=== PATIENT | male | born 1940 | race Caucasian/White ===

== ENCOUNTER 2021-10-10 14:42 | Inpatient (IN) ==
[2021-10-10] MEDS ORDERED: Melatonin 3 MG TABLET PO PRN (16:30)
[2021-10-10] MEDS ORDERED: Naloxone 0.4 MG/ML INJ IVP PRN (16:30)
[2021-10-10] MEDS ORDERED: *HR* OxyCODONE/APAP 5/325 TABLET PO PRN (16:45)
[2021-10-10] MEDS: *HR* OxyCODONE/APAP 10/325 TABLET PO PRN (17:17)
[2021-10-10] MEDS: Pyridoxine (B-6) 50 MG TABLET PO SCH (18:11)
[2021-10-10] MEDS: 0.9 % Sodium Chloride 1,000 ML IVC SCH (18:11)
[2021-10-11] MEDS: *HR* OxyCODONE/APAP 10/325 TABLET PO PRN (00:14)
[2021-10-11] MEDS: 0.9 % Sodium Chloride 1,000 ML IVC SCH ×2 (04:07→13:57)
[2021-10-11 04:49] LABS: Basophils % 0.2 %; Eosinophils # 0.1 K/mcL (0.0-0.6); Eosinophils % 1.4 %; Hematocrit 32.5 % (37.5-50.1); Hemoglobin 10.9 g/dL (12.9-16.9); Immature Granulocytes % 0.5 % (0-4); Lymphocytes # 1.4 K/mcL (0.6-4.6); Mean Corpuscular HGB Conc 33.5 g/dL (31.6-35.5); Mean Corpuscular Hemoglobin 32.8 pg (28.0-33.3); Mean Corpuscular Volume 97.9 fL (83.0-100.0); Mean Platelet Volume 11.1 fL (9.4-12.4); Monocytes # 0.8 K/mcL (0.0-1.3); Monocytes % 8.8 %; Neutrophils # 6.3 K/mcL (1.6-8.9); Platelet Count 135 K/mcL (140-400); Red Blood Count 3.32 M/mcL (4.19-5.50); Red Cell Distribution Width 16.9 % (11.5-14.5); Segmented Neutrophils % 73.1 %; White Blood Count 8.6 K/mcL (4.3-11.1)
[2021-10-11 05:03] LABS: Calcium 8.6 mg/dL (8.6-10.3); Magnesium 1.7 mg/dL (1.6-2.6); Phosphorous 3.5 mg/dL (2.7-4.5); Potassium 3.9 mEq/L (3.5-5.1)
[2021-10-11] MEDS: Cyanocobalamin (B-12) 1,000 MCG TABLET PO SCH (07:56)
[2021-10-11] MEDS: amLODIPine 5 MG TABLET PO SCH (07:56)
[2021-10-11] MEDS ORDERED: *HR* OxyCODONE/APAP 5/325 TABLET PO PRN (09:48)
[2021-10-11] MEDS ORDERED: *HR* Rocuronium Bromide 50 MG/5 ML VIAL ONE (10:38)
[2021-10-11] MEDS ORDERED: Lidocaine -MPF 2% 5 ML VIAL ONE (10:38)
[2021-10-11] MEDS ORDERED: Ondansetron 4 MG/2 ML VIAL ONE (10:38)
[2021-10-11] MEDS ORDERED: Lidocaine HCL 4 ML Topical Solution (Laryng-O-Jet Kit Sterile Pak) TP ONE (10:38)
[2021-10-11] MEDS ORDERED: *HR* FentaNYL (PF) 100 MCG/2 ML VIAL ONE (10:39)
[2021-10-11] MEDS ORDERED: *HR* Propofol 200 MG/20 ML VIAL IVP ONE (10:39)
[2021-10-11] MEDS ORDERED: CeFAZolin Syr 2,000MG/20 ML 2,000 MG/20 ML SYRINGE IVPB ONE (11:03)
[2021-10-11] MEDS ORDERED: Acetaminophen IV 1,000 MG/100 ML BAG IVPB ONE (12:28)
[2021-10-11] MEDS ORDERED: Sugammadex Sodium 200 MG/2 ML VIAL IV ONE (12:39)
[2021-10-11] MEDS ORDERED: Ondansetron 4 MG/2 ML VIAL IVP PRN (13:15)
[2021-10-11] MEDS ORDERED: *HR* OxyCODONE Immed Rel 5 MG TABLET PO PRN (13:15)
[2021-10-11] MEDS: Pyridoxine (B-6) 50 MG TABLET PO SCH (17:46)
[2021-10-11] MEDS: CeFAZolin 2 GM/100 ML BAG IVPB SCH (21:24)
[2021-10-11] MEDS ORDERED: *HR* Heparin 5,000 UNIT/ML VIAL SQ SCH (22:00)
[2021-10-12] MEDS: CeFAZolin 2 GM/100 ML BAG IVPB SCH (04:12)
[2021-10-12 05:49] LABS: Hematocrit 25.3 % (37.5-50.1); Mean Corpuscular HGB Conc 33.2 g/dL (31.6-35.5); Mean Corpuscular Hemoglobin 33.5 pg (28.0-33.3); Mean Corpuscular Volume 100.8 fL (83.0-100.0); Mean Platelet Volume 11.5 fL (9.4-12.4); Platelet Count 114 K/mcL (140-400); Red Blood Count 2.51 M/mcL (4.19-5.50); Red Cell Distribution Width 16.8 % (11.5-14.5); White Blood Count 8.8 K/mcL (4.3-11.1)
[2021-10-12 05:51] LABS: Hemoglobin 8.4 g/dL (12.9-16.9)
[2021-10-12 06:09] LABS: Calcium 8.2 mg/dL (8.6-10.3); Potassium 4.1 mEq/L (3.5-5.1)
[2021-10-12] MEDS ORDERED: lisinopriL 20 MG TABLET PO SCH (09:00)
[2021-10-12] MEDS: allopurinoL 300 MG TABLET PO SCH (10:06)
[2021-10-12] MEDS: amLODIPine 5 MG TABLET PO SCH (10:06)
[2021-10-12] MEDS: Aspirin Enteric Coated 81 MG Tablet PO SCH (10:06)
[2021-10-12] MEDS: Cyanocobalamin (B-12) 1,000 MCG TABLET PO SCH (10:06)
[2021-10-12] MEDS: *HR* Enoxaparin 40 MG/0.4 ML SYRINGE SQ SCH (10:07)
[2021-10-12] MEDS: Pyridoxine (B-6) 50 MG TABLET PO SCH (18:01)
[2021-10-13 02:20] LABS: Hematocrit 22.9 % (37.5-50.1); Hemoglobin 7.6 g/dL (12.9-16.9); Mean Corpuscular HGB Conc 33.2 g/dL (31.6-35.5); Mean Corpuscular Volume 99.6 fL (83.0-100.0); Mean Platelet Volume 12.1 fL (9.4-12.4); Platelet Count 103 K/mcL (140-400); White Blood Count 8.2 K/mcL (4.3-11.1)
[2021-10-13] MEDS: *HR* Enoxaparin 40 MG/0.4 ML SYRINGE SQ SCH (09:12)
[2021-10-13] MEDS: Aspirin Enteric Coated 81 MG Tablet PO SCH (09:13)
[2021-10-13] MEDS: allopurinoL 300 MG TABLET PO SCH (09:13)
[2021-10-13] MEDS: amLODIPine 5 MG TABLET PO SCH (09:13)
[2021-10-13] MEDS: Cyanocobalamin (B-12) 1,000 MCG TABLET PO SCH (09:13)
[2021-10-13] MEDS: 0.9 % Sodium Chloride 1,000 ML IVC SCH ×2 (16:11→16:50)
[2021-10-13] MEDS: Pyridoxine (B-6) 50 MG TABLET PO SCH (18:12)
[2021-10-14 06:06] LABS: Hematocrit 19.4 % (37.5-50.1); Hemoglobin 6.4 g/dL (12.9-16.9); Platelet Count 102 K/mcL (140-400); Red Cell Distribution Width 17.2 % (11.5-14.5); White Blood Count 6.7 K/mcL (4.3-11.1)
[2021-10-14 06:18] LABS: Calcium 8.1 mg/dL (8.6-10.3); Potassium 4.1 mEq/L (3.5-5.1)
[2021-10-14] MEDS ORDERED: 0.9 % Sodium Chloride 250 ML IVC SCH (07:45)
[2021-10-14] MEDS: allopurinoL 300 MG TABLET PO SCH (08:54)
[2021-10-14] MEDS: Aspirin Enteric Coated 81 MG Tablet PO SCH (08:54)
[2021-10-14] MEDS: Cyanocobalamin (B-12) 1,000 MCG TABLET PO SCH (08:55)
[2021-10-14] MEDS: amLODIPine 5 MG TABLET PO SCH (08:55)
[2021-10-14 14:43] LABS: Hematocrit 20.9 % (37.5-50.1); Hemoglobin 7.2 g/dL (12.9-16.9)
[2021-10-14] MEDS: 0.9 % Sodium Chloride 1,000 ML IVC SCH (18:02)
[2021-10-14] MEDS: Pyridoxine (B-6) 50 MG TABLET PO SCH (18:09)
[2021-10-15 05:31] LABS: Basophils % 0.3 %; Eosinophils # 0.1 K/mcL (0.0-0.6); Eosinophils % 1.5 %; Hematocrit 20.6 % (37.5-50.1); Hemoglobin 6.9 g/dL (12.9-16.9); Immature Granulocytes % 0.5 % (0-4); Lymphocytes # 1.1 K/mcL (0.6-4.6); Lymphocytes % 18.3 %; Mean Corpuscular HGB Conc 33.5 g/dL (31.6-35.5); Mean Corpuscular Hemoglobin 31.7 pg (28.0-33.3); Mean Corpuscular Volume 94.5 fL (83.0-100.0); Mean Platelet Volume 11.2 fL (9.4-12.4); Monocytes # 0.5 K/mcL (0.0-1.3); Monocytes % 8.3 %; Neutrophils # 4.3 K/mcL (1.6-8.9); Nucleated Red Blood Cells 0.3 /100 WBC (0); Platelet Count 108 K/mcL (140-400); Red Blood Count 2.18 M/mcL (4.19-5.50); Red Cell Distribution Width 17.9 % (11.5-14.5); Segmented Neutrophils % 71.1 %; White Blood Count 6.1 K/mcL (4.3-11.1)
[2021-10-15 05:56] LABS: Calcium 8.2 mg/dL (8.6-10.3); Magnesium 1.7 mg/dL (1.6-2.6); Potassium 4.1 mEq/L (3.5-5.1)
[2021-10-15] MEDS: allopurinoL 300 MG TABLET PO SCH (07:39)
[2021-10-15] MEDS: Finasteride 5 MG TABLET PO SCH (07:39)
[2021-10-15] MEDS: Aspirin Enteric Coated 81 MG Tablet PO SCH (07:39)
[2021-10-15] MEDS: Cyanocobalamin (B-12) 1,000 MCG TABLET PO SCH (07:39)
[2021-10-15] MEDS: amLODIPine 5 MG TABLET PO SCH (07:39)
[2021-10-15] MEDS ORDERED: 0.9 % Sodium Chloride 250 ML IVC SCH (07:45)
[2021-10-15] MEDS: 0.9 % Sodium Chloride 1,000 ML IVC SCH (10:17)
[2021-10-15 11:08] LABS: Estimated Average Glucose 97 mg/dl
[2021-10-15] MEDS: Pyridoxine (B-6) 50 MG TABLET PO SCH (17:20)
[2021-10-16 06:32] LABS: Basophils % 0.2 %; Eosinophils # 0.1 K/mcL (0.0-0.6); Eosinophils % 1.6 %; Hematocrit 24.1 % (37.5-50.1); Hemoglobin 8.2 g/dL (12.9-16.9); Immature Granulocytes % 0.7 % (0-4); Lymphocytes # 1.1 K/mcL (0.6-4.6); Lymphocytes % 19.7 %; Mean Corpuscular Hemoglobin 32.3 pg (28.0-33.3); Mean Corpuscular Volume 94.9 fL (83.0-100.0); Mean Platelet Volume 10.9 fL (9.4-12.4); Monocytes # 0.5 K/mcL (0.0-1.3); Monocytes % 9.4 %; Neutrophils # 3.9 K/mcL (1.6-8.9); Platelet Count 120 K/mcL (140-400); Red Blood Count 2.54 M/mcL (4.19-5.50); Red Cell Distribution Width 17.2 % (11.5-14.5); Segmented Neutrophils % 68.4 %; White Blood Count 5.7 K/mcL (4.3-11.1)
[2021-10-16 06:53] LABS: BUN/Creatinine Ratio 33 (6-26); Blood Urea Nitrogen 43 mg/dL (8-23); Calcium 8.5 mg/dL (8.6-10.3); Carbon Dioxide 24 mEq/L (23-29); Chloride 98 mEq/L (98-107); Glucose 115 mg/dL (70-105); Magnesium 1.7 mg/dL (1.6-2.6); Osmolality,Calculated 280 (280-300); Potassium 4.2 mEq/L (3.5-5.1); Sodium 129 mEq/L (136-145); eGFR For African Americans > 60 (> 60); eGFR For Non-African Americans 53 (> 60)
[2021-10-16] MEDS: Cyanocobalamin (B-12) 1,000 MCG TABLET PO SCH (09:05)
[2021-10-16] MEDS: Aspirin Enteric Coated 81 MG Tablet PO SCH (09:05)
[2021-10-16] MEDS: allopurinoL 300 MG TABLET PO SCH (09:05)
[2021-10-16] MEDS: Finasteride 5 MG TABLET PO SCH (09:05)
[2021-10-16] MEDS: amLODIPine 5 MG TABLET PO SCH (09:05)
[2021-10-16 11:25] VITALS: PULSE 96
[2021-10-16 14:16] LABS: Adenovirus Not Detected (Not Detect); Bordetella Pertussis Not Detected (Not Detect); Chlamydophila pneumoniae Not Detected (Not Detect); Coronavirus 229E Not Detected (Not Detect); Coronavirus HKU1 Not Detected (Not Detect); Coronavirus NL63 Not Detected (Not Detect); Coronavirus OC43 Not Detected (Not Detect); Human Metapneumovirus Not Detected (Not Detect); Human Rhinovirus/Enterovirus Not Detected (Not Detect); Influenza A Subtype 2009 H1 Not Detected (Not Detect); Influenza B Not Detected (Not Detect); Mycoplasma pneumoniae Not Detected (Not Detect); Parainfluenza Virus 1 Not Detected (Not Detect); Parainfluenza Virus 2 Not Detected (Not Detect); Parainfluenza Virus 3 Not Detected (Not Detect); Parainfluenza Virus 4 Not Detected (Not Detect); Respiratory Syncytial Virus Not Detected (Not Detect); SARS-CoV-2 Not Detected (Not Detect)
[2021-10-16 14:59] VITALS: BP 160/68; TEMP 98.6; O2SAT 93
[2021-10-17] MEDS ORDERED: polyethylene glycoL 3350 17 GM POWD.PACK PO SCH (09:00)
== END 2021-10-16 17:55 | DRG 481 ==
LOC: 4WAOSI → SUATTDRO 16:30
PROVIDERS: ADMIT Internal Medicine; ATTEND Pharmacist

== ENCOUNTER 2021-11-03 12:07 | Observation (INO) ==
[2021-11-03] MEDS ORDERED: Naloxone 0.4 MG/ML INJ IVP PRN (17:14)
[2021-11-03] MEDS ORDERED: Acetaminophen 325 MG TABLET PO PRN (17:14)
[2021-11-03] MEDS ORDERED: Ondansetron 4 MG/2 ML VIAL IVP PRN (17:14)
[2021-11-03] MEDS ORDERED: D5% in Water 1,000 ML IVC PRN (17:59)
[2021-11-03] MEDS ORDERED: Dextrose 4 GM Chewable Tablets PO PRN ×2 (17:59)
[2021-11-03] MEDS ORDERED: *HR* Dextrose 50 % in Water (Syg) 50 ML SYRINGE IVP PRN (17:59)
[2021-11-03] MEDS: Insulin LISPRO 300 UNITS/3 ML VIAL SUBQ SCH ×2 (18:26→22:06)
[2021-11-04 06:13] LABS: Calcium 8.8 mg/dL (8.6-10.3); Magnesium 1.9 mg/dL (1.6-2.6); Potassium 4.3 mEq/L (3.5-5.1)
[2021-11-04 06:14] LABS: INR 1.3; Prothrombin Time 14.7 Seconds (9.4-12.1)
[2021-11-04 06:35] LABS: Basophils % 0.3 %; Eosinophils # 0.1 K/mcL (0.0-0.6); Eosinophils % 1.8 %; Hemoglobin 8.1 g/dL (12.9-16.9); Lymphocytes # 1.1 K/mcL (0.6-4.6); Lymphocytes % 27.1 %; Mean Corpuscular HGB Conc 31.2 g/dL (31.6-35.5); Mean Corpuscular Hemoglobin 30.9 pg (28.0-33.3); Mean Corpuscular Volume 99.2 fL (83.0-100.0); Mean Platelet Volume 10.1 fL (9.4-12.4); Monocytes # 0.4 K/mcL (0.0-1.3); Monocytes % 10.8 %; Neutrophils # 2.4 K/mcL (1.6-8.9); Platelet Count 224 K/mcL (140-400); Red Blood Count 2.62 M/mcL (4.19-5.50); Red Cell Distribution Width 18.4 % (11.5-14.5)
[2021-11-04] MEDS: Insulin LISPRO 300 UNITS/3 ML VIAL SUBQ SCH ×4 (09:31→21:23)
[2021-11-04] MEDS ORDERED: *HR* FentaNYL (PF) 100 MCG/2 ML VIAL ONE (15:37)
[2021-11-04] MEDS ORDERED: *HR* Midazolam HCl 2 MG/2 ML VIAL ONE (15:38)
[2021-11-04] MEDS ORDERED: Heparin 1,000 UNITS/500 mL 1,000 ML ONE (15:38)
[2021-11-04] MEDS ORDERED: 0.9 % Sodium Chloride 1,000 ML ONE (15:48)
[2021-11-05 04:00] LABS: Basophils % 0.5 %; Eosinophils # 0.1 K/mcL (0.0-0.6); Eosinophils % 1.8 %; Hematocrit 26.3 % (37.5-50.1); Hemoglobin 8.2 g/dL (12.9-16.9); Lymphocytes # 1.1 K/mcL (0.6-4.6); Mean Corpuscular HGB Conc 31.2 g/dL (31.6-35.5); Mean Corpuscular Hemoglobin 31.1 pg (28.0-33.3); Mean Corpuscular Volume 99.6 fL (83.0-100.0); Mean Platelet Volume 8.9 fL (9.4-12.4); Monocytes # 0.4 K/mcL (0.0-1.3); Monocytes % 9.8 %; Neutrophils # 2.3 K/mcL (1.6-8.9); Platelet Count 210 K/mcL (140-400); Red Blood Count 2.64 M/mcL (4.19-5.50); Red Cell Distribution Width 18.4 % (11.5-14.5); Segmented Neutrophils % 58.9 %
[2021-11-05 04:14] LABS: BUN/Creatinine Ratio 42 (6-26); Blood Urea Nitrogen 50 mg/dL (8-23); Calcium 8.7 mg/dL (8.6-10.3); Carbon Dioxide 25 mEq/L (23-29); Chloride 107 mEq/L (98-107); Glucose 100 mg/dL (70-105); Osmolality,Calculated 299 (280-300); Potassium 4.2 mEq/L (3.5-5.1); Sodium 138 mEq/L (136-145); eGFR For African Americans > 60 (> 60); eGFR For Non-African Americans 58 (> 60)
[2021-11-05] MEDS: Insulin LISPRO 300 UNITS/3 ML VIAL SUBQ SCH ×2 (07:50→13:28)
[2021-11-05] MEDS: amLODIPine 5 MG TABLET PO SCH (10:53)
[2021-11-05] MEDS: lisinopriL 20 MG TABLET PO SCH (10:53)
[2021-11-05] MEDS: Cyanocobalamin (B-12) 1,000 MCG TABLET PO SCH (10:53)
[2021-11-05] MEDS: Finasteride 5 MG TABLET PO SCH (10:54)
[2021-11-05] MEDS: Furosemide 20 MG TABLET PO SCH (21:39)
[2021-11-06 07:15] LABS: Hematocrit 27.3 % (37.5-50.1); Hemoglobin 8.6 g/dL (12.9-16.9)
[2021-11-06] MEDS: Furosemide 20 MG TABLET PO SCH ×2 (08:04→21:49)
[2021-11-06] MEDS: amLODIPine 5 MG TABLET PO SCH (08:04)
[2021-11-06] MEDS: Finasteride 5 MG TABLET PO SCH (08:04)
[2021-11-06] MEDS: allopurinoL 300 MG TABLET PO SCH (08:05)
[2021-11-06] MEDS: Cyanocobalamin (B-12) 1,000 MCG TABLET PO SCH (08:05)
[2021-11-06] MEDS: lisinopriL 20 MG TABLET PO SCH (08:05)
[2021-11-07 04:12] LABS: Hematocrit 27.3 % (37.5-50.1); Hemoglobin 8.8 g/dL (12.9-16.9)
[2021-11-07] MEDS: Finasteride 5 MG TABLET PO SCH (08:43)
[2021-11-07] MEDS: allopurinoL 300 MG TABLET PO SCH (08:43)
[2021-11-07] MEDS: Cyanocobalamin (B-12) 1,000 MCG TABLET PO SCH (08:43)
[2021-11-07] MEDS: Furosemide 20 MG TABLET PO SCH ×2 (08:43→20:47)
[2021-11-07] MEDS: amLODIPine 5 MG TABLET PO SCH (08:43)
[2021-11-07] MEDS: lisinopriL 20 MG TABLET PO SCH (08:43)
[2021-11-08] MEDS: Finasteride 5 MG TABLET PO SCH (08:23)
[2021-11-08] MEDS: lisinopriL 20 MG TABLET PO SCH (08:23)
[2021-11-08] MEDS: allopurinoL 300 MG TABLET PO SCH (08:23)
[2021-11-08] MEDS: Furosemide 20 MG TABLET PO SCH ×2 (08:24→20:48)
[2021-11-08] MEDS: Cyanocobalamin (B-12) 1,000 MCG TABLET PO SCH (08:24)
[2021-11-08] MEDS: amLODIPine 5 MG TABLET PO SCH (08:24)
[2021-11-09] MEDS: lisinopriL 20 MG TABLET PO SCH (08:38)
[2021-11-09] MEDS: Finasteride 5 MG TABLET PO SCH (08:39)
[2021-11-09] MEDS: allopurinoL 300 MG TABLET PO SCH (08:39)
[2021-11-09] MEDS: Cyanocobalamin (B-12) 1,000 MCG TABLET PO SCH (08:40)
[2021-11-09] MEDS: amLODIPine 5 MG TABLET PO SCH (08:40)
[2021-11-09] MEDS: Furosemide 20 MG TABLET PO SCH (08:40)
[2021-11-09 11:21] VITALS: BP 128/66; PULSE 80; TEMP 97.8; O2SAT 97
[2021-11-09 15:02] LABS: Influenza A PCR Negative (Negative); Influenza B PCR Negative (Negative); Resp. Syncytial Virus PCR Negative (Negative)
[2021-11-09 15:06] LABS: SARS-CoV-2 by PCR (In House) Negative (Negative)
== END 2021-11-09 16:40 | disposition other institution (70) ==
LOC: 3ANU → SUATTDRO 15:58
PROVIDERS: ADMIT Pharmacist; ATTEND Internal Medicine

== ENCOUNTER 2022-02-08 14:13 | Observation (INO) ==
[2022-02-08] MEDS ORDERED: Ondansetron 4 MG/2 ML VIAL IVP PRN (17:21)
[2022-02-08] MEDS ORDERED: Naloxone 0.4 MG/ML INJ IVP PRN (17:21)
[2022-02-08] MEDS ORDERED: Acetaminophen 325 MG TABLET PO PRN (17:21)
[2022-02-08] MEDS ORDERED: SULFUR HEXAFLUORIDE MICROSPHR 25 MG VIAL IVP PRN (18:00)
[2022-02-08] MEDS ORDERED: Gadolinium Contrast Agent (WT Based) IV PRN (18:02)
[2022-02-08] MEDS ORDERED: *HR* Dextrose 50 % in Water (Syg) 50 ML SYRINGE IVP PRN (18:26)
[2022-02-08] MEDS ORDERED: Dextrose Gel 15 GM/37.5 ML TUBE PO PRN ×2 (18:26)
[2022-02-08] MEDS ORDERED: D5% in Water 1,000 ML IVC PRN (18:26)
[2022-02-08] MEDS: *HR* Labetalol 20 MG/4 ML SYRINGE IVP PRN (18:32)
[2022-02-08] MEDS: Insulin LISPRO 300 UNITS/3 ML VIAL SUBQ SCH ×2 (19:54→21:04)
[2022-02-08] MEDS: cefTRIAXone 1,000 MG in 0.9 % Sodium Chloride Mini Bag 100 ML IVPB SCH (21:12)
[2022-02-09 01:14] LABS: Basophils % 0.4 %; Eosinophils # 0.1 K/mcL (0.0-0.6); Eosinophils % 1.5 %; Hematocrit 35.7 % (37.5-50.1); Hemoglobin 11.6 g/dL (12.9-16.9); Immature Granulocytes % 0.2 % (0-4); Lymphocytes # 1.2 K/mcL (0.6-4.6); Lymphocytes % 21.8 %; Mean Corpuscular HGB Conc 32.5 g/dL (31.6-35.5); Mean Corpuscular Volume 92.2 fL (83.0-100.0); Mean Platelet Volume 9.2 fL (9.4-12.4); Monocytes # 0.5 K/mcL (0.0-1.3); Monocytes % 9.9 %; Neutrophils # 3.5 K/mcL (1.6-8.9); Platelet Count 142 K/mcL (140-400); Red Blood Count 3.87 M/mcL (4.19-5.50); Red Cell Distribution Width 17.2 % (11.5-14.5); Segmented Neutrophils % 66.2 %; White Blood Count 5.3 K/mcL (4.3-11.1)
[2022-02-09 01:24] LABS: Estimated Average Glucose 94 mg/dl; Hemoglobin A1C 4.9 %
[2022-02-09 01:29] LABS: BUN/Creatinine Ratio 16 (6-26); Blood Urea Nitrogen 22 mg/dL (8-23); Calcium 8.6 mg/dL (8.6-10.3); Carbon Dioxide 26 mEq/L (23-29); Chloride 102 mEq/L (98-107); Glucose 120 mg/dL (70-105); Magnesium 1.5 mg/dL (1.6-2.6); Osmolality,Calculated 287 (280-300); Potassium 4.1 mEq/L (3.5-5.1); Sodium 136 mEq/L (136-145); eGFR For African Americans > 60 (> 60); eGFR For Non-African Americans 51 (> 60)
[2022-02-09] MEDS: Insulin LISPRO 300 UNITS/3 ML VIAL SUBQ SCH ×4 (07:50→22:01)
[2022-02-09] MEDS: *HR* Enoxaparin 40 MG/0.4 ML SYRINGE SQ SCH (08:12)
[2022-02-09] MEDS: cefTRIAXone 1,000 MG in 0.9 % Sodium Chloride Mini Bag 100 ML IVPB SCH (08:13)
[2022-02-09] MEDS: lisinopriL 20 MG TABLET PO SCH (10:46)
[2022-02-10] MEDS: *HR* Labetalol 20 MG/4 ML SYRINGE IVP PRN (03:11)
[2022-02-10 05:40] LABS: Basophils % 0.2 %; Eosinophils # 0.2 K/mcL (0.0-0.6); Eosinophils % 3.3 %; Hematocrit 35.6 % (37.5-50.1); Hemoglobin 11.4 g/dL (12.9-16.9); Immature Granulocytes % 0.4 % (0-4); Lymphocytes # 1.4 K/mcL (0.6-4.6); Lymphocytes % 28.4 %; Mean Corpuscular Volume 93.7 fL (83.0-100.0); Mean Platelet Volume 9.5 fL (9.4-12.4); Monocytes # 0.6 K/mcL (0.0-1.3); Monocytes % 11.6 %; Neutrophils # 2.7 K/mcL (1.6-8.9); Platelet Count 133 K/mcL (140-400); Red Cell Distribution Width 17.4 % (11.5-14.5); Segmented Neutrophils % 56.1 %; White Blood Count 4.8 K/mcL (4.3-11.1)
[2022-02-10 06:00] LABS: BUN/Creatinine Ratio 18 (6-26); Blood Urea Nitrogen 22 mg/dL (8-23); Calcium 8.8 mg/dL (8.6-10.3); Carbon Dioxide 29 mEq/L (23-29); Chloride 102 mEq/L (98-107); Glucose 100 mg/dL (70-105); Magnesium 1.7 mg/dL (1.6-2.6); Osmolality,Calculated 287 (280-300); Sodium 137 mEq/L (136-145); eGFR For African Americans > 60 (> 60); eGFR For Non-African Americans 57 (> 60)
[2022-02-10] MEDS: Insulin LISPRO 300 UNITS/3 ML VIAL SUBQ SCH ×4 (08:25→20:35)
[2022-02-10] MEDS: *HR* Enoxaparin 40 MG/0.4 ML SYRINGE SQ SCH (08:27)
[2022-02-10] MEDS: amLODIPine 5 MG TABLET PO SCH (08:27)
[2022-02-10] MEDS: lisinopriL 20 MG TABLET PO SCH (08:27)
[2022-02-10] MEDS: cefTRIAXone 1,000 MG in 0.9 % Sodium Chloride Mini Bag 100 ML IVPB SCH (08:27)
[2022-02-10] MEDS ORDERED: amLODIPine 5 MG TABLET PO ONE (12:15)
[2022-02-11] MEDS: *HR* Labetalol 20 MG/4 ML SYRINGE IVP PRN (00:37)
[2022-02-11] MEDS: Insulin LISPRO 300 UNITS/3 ML VIAL SUBQ SCH ×2 (07:23→12:26)
[2022-02-11] MEDS: amLODIPine 5 MG TABLET PO SCH (08:13)
[2022-02-11] MEDS: *HR* Enoxaparin 40 MG/0.4 ML SYRINGE SQ SCH (08:14)
[2022-02-11] MEDS: lisinopriL 20 MG TABLET PO SCH (08:14)
[2022-02-11] MEDS: cefTRIAXone 1,000 MG in 0.9 % Sodium Chloride Mini Bag 100 ML IVPB SCH (08:14)
[2022-02-11 10:46] VITALS: BP 118/53; PULSE 82; TEMP 97.4; O2SAT 96
== END 2022-02-11 14:41 | disposition home health service (06) ==
LOC: 3BNU → SUATTDRO 16:59
PROVIDERS: ADMIT Pharmacist; ATTEND Internal Medicine